=== PATIENT | female | born 1930 | race Two or more races ===

== ENCOUNTER 2016-11-17 09:39 | Emergency (ER) | payer MEDICARE, BC ==
[~2016-11-17] VITALS: Ht 152.4 cm; Wt 42.6 kg
[~2016-11-17 09:39] MED LIST: ACID1TAB12 PO; ASPI-605 PO; CALC250T2 PO; CHOL100062 PO; DIVA125T3 PO; LEVO750T21 PO; MIRT15TA7 PO; MULT-24 PO; RISP0.2515 PO; RIVA1.5C7 PO
--- NOTE | 2016-11-17 09:42 | NUR ---
[id number], bibra [id number] from B&C c/o laceration to right eyebrow s/p GLF, fell off the wheelchair, -ko. Resp is even and unlabored with nad noted. Skin is warm and dry. Dr Heller at [facility] for eval.
[2016-11-17] MEDS ORDERED: LIDOCAINE HCL/PF 1% 30 ML SDV ONE (09:51)
--- NOTE | 2016-11-17 09:52 | NUR ---
Called [facility] and spoke with jyothi . Dr Heller on the phone with jyothi.
[2016-11-17] MEDS ORDERED: LIDOCAINE 1%-EPI 1:100,000 50 ML VIAL IJ ONE (10:00)
[2016-11-17] MEDS ORDERED: LIDOCAINE 2%-EPI 1:100,000 30 ML VIAL ONE (10:03)
--- NOTE | 2016-11-17 10:10 | NUR ---
AT FOR WOUND CARE/PROCEDURE.
--- NOTE | 2016-11-17 10:55 | NUR ---
Patient discharged to home in stable condition. Written and verbal after care instructions given. Patient 'Family meber verbalizes understanding of instruction. Pt safely assisted to private vehicle as family wants to be the one to bring her back to the [facility].
[2016-11-17 10:56] VITALS: BP 148/84
== END 2016-11-17 10:57 | disposition home or self-care (01) ==
LOC: ER 09:43
DX: S01.81XA Laceration without foreign body of other part of head, initial encounter (principal); I10 Essential (primary) hypertension; F03.90 Unspecified dementia, unspecified severity, without behavioral disturbance, psychotic disturbance, mood disturbance, and anxiety; Z79.82 Long term (current) use of aspirin; Z85.41 Personal history of malignant neoplasm of cervix uteri; W05.0XXA Fall from non-moving wheelchair, initial encounter; Y93.89 Activity, other specified; Y92.89 Other specified places as the place of occurrence of the external cause; Y99.9 Unspecified external cause status
CPT/HCPCS: A4606; A6402; A6403; J3490; Z7610